=== PATIENT | male | born 1970 | race Hispanic/Latino ===

== ENCOUNTER 2017-03-05 14:46 | Observation (INO) | payer SELFPAY ==
[~2017-03-05] VITALS: Ht 180.3 cm; Wt 105.8 kg
[2017-03-05 15:17] LABS: HEMATOCRIT 35.1 % (39.0-50.0); HEMOGLOBIN 11.9 g/dl (14.0-18.0); IMMATURE GRANULOCYTES 0.4 % (0.0-1.0); MEAN CELL VOLUME 82.8 fL CALC (80.0-100.0); MEAN CORPUSCULAR HGB 28.1 pG CALC (26.0-32.0); MEAN CORPUSCULAR HGB CONC 33.9 g/L CALC (32.0-36.0); NEUT# 6.73 thou/uL (1.82-7.42); RED BLOOD COUNT 4.24 mill/uL (4.70-6.10); RED CELL DISTRI WIDTH 13.3 % (11.5-15.5)
[2017-03-05 15:31] LABS: ALBUMIN 4.7 g/dL (3.2-5.0); ALKALINE PHOSPHATASE 65 u/l (38-126); ANION GAP 16 (6-22 (CALC)); BILIRUBIN, TOTAL 0.4 mg/dL (0.0-1.4); BUN 23 mg/dL (9-20); BUN/CREATININE RATIO 18 (12-20 (CALC)); CALCIUM 9.9 mg/dL (8.4-10.2); CARBON DIOXIDE 27 mmol/l (22-30); CHLORIDE 100 mmol/l (95-108); CREATININE 1.3 mg/dL (0.7-1.3); GFR 60 ML/MIN (>=60 (CALC)); GFR FOR AFR.AMER. > 60 ML/MIN (>=60 (CALC)); GLUCOSE 86 mg/dL (75-110); POTASSIUM 3.9 mmol/l (3.5-5.1); SGOT/AST 48 u/l (17-59); SGPT/ALT 74 u/l (21-72); SODIUM 139 mmol/l (137-146); TOTAL PROTEIN 8.5 g/dL (6.3-8.2)
[2017-03-05 15:42] LABS: MYOGLOBIN 195 ng/mL (0 - 121)
[2017-03-05 17:41] VITALS: BP 127/51
[2017-03-05 19:15] VITALS: BP 97/63
[2017-03-05 23:17] VITALS: BP 100/67
[2017-03-06 05:00] VITALS: BP 91/59
[2017-03-06 06:23] LABS: HEMATOCRIT 33.9 % (39.0-50.0); HEMOGLOBIN 11.5 g/dl (14.0-18.0); IMMATURE GRANULOCYTES 0.2 % (0.0-1.0); MEAN CELL VOLUME 84.1 fL CALC (80.0-100.0); MEAN CORPUSCULAR HGB 28.5 pG CALC (26.0-32.0); MEAN CORPUSCULAR HGB CONC 33.9 g/L CALC (32.0-36.0); NEUT# 2.67 thou/uL (1.82-7.42); RED BLOOD COUNT 4.03 mill/uL (4.70-6.10); RED CELL DISTRI WIDTH 13.6 % (11.5-15.5)
[2017-03-06 06:28] LABS: ANION GAP 13 (6-22 (CALC)); BUN 19 mg/dL (9-20); BUN/CREATININE RATIO 24 (12-20 (CALC)); CALCIUM 9.4 mg/dL (8.4-10.2); CALCULATED LDLCHOLESTEROL 141 mg/dL (62-129 (CALC)); CARBON DIOXIDE 25 mmol/l (22-30); CHLORIDE 107 mmol/l (95-108); CHOLESTEROL HDL RATIO 7.1 (<4.4 (CALC)); CREATININE 0.8 mg/dL (0.7-1.3); GFR > 60 ML/MIN (>=60 (CALC)); GFR FOR AFR.AMER. > 60 ML/MIN (>=60 (CALC)); GLUCOSE 95 mg/dL (75-110); HDL CHOLESTEROL 34 mg/dL (>=40); POTASSIUM 3.9 mmol/l (3.5-5.1); SODIUM 141 mmol/l (137-146); TOTAL CHOLESTEROL 238 mg/dl (0-199); TOTAL TRIGLYCERIDES 315 mg/dl (30-149); VLDL CHOLESTROL 63 mg/dl (5-56 (CALC))
[2017-03-06 08:00] VITALS: BP 136/60
[2017-03-06 13:19] VITALS: BP 102/54
[2017-03-06] MEDS ORDERED: PEPCID20 MG PO (13:47)
[2017-03-06] MEDS ORDERED: ADLT ASA LOW81 MG PO (13:47)
[2017-03-06] MEDS ORDERED: LIPITOR20 MG PO (13:47)
== END 2017-03-06 16:47 | disposition home or self-care (01) | DRG 313 ==
LOC: ENPENDDIS → ED 14:46 → ED-I 15:58 → ED 16:38 → MS2 16:39
PROVIDERS: Emergency Medicine; ADMIT Internal Medicine; ATTEND Internal Medicine
DX: R07.9 Chest pain, unspecified (principal); E78.5 Hyperlipidemia, unspecified; D64.9 Anemia, unspecified; M19.90 Unspecified osteoarthritis, unspecified site; M25.562 Pain in left knee; M25.561 Pain in right knee
CPT/HCPCS: G0378